=== PATIENT | male | born 1960 | race African-American/Black ===

== ENCOUNTER 2019-09-25 08:57 | Emergency (ER) | payer BC, OTHER ==
[~2019-09-25] VITALS: Ht 188 cm; Wt 183.7 kg
[2019-09-25 09:03] VITALS: BP 121/79
--- NOTE | 2019-09-25 09:23 | NUR ---
58 YO M presented to ER c/o Chest discomfort, left elbow pain x 1 week and nose bleed this morning. Pt rates chest pain 4/10 and left elbow pain 6/10. Pt denies SOB. Pt denies N/V/D. Pt states chest pain started x1 week and then started radiating down to left arm. Pt denies falling or hitting left arm on anything. Pt states he uses [facility] and woke up this morning with a nose bleed, it took 3 minutes to stop the bleed. Pt states he took aspirin this morning for the chest pain and ibuprofen last night for left elbow pain. Pt resting in bed at lowest position, HOB elevated, side rails X1. HX: Diabetes, HTN, Kidney Stones RX: see med rec
[2019-09-25 10:01] LABS: BASOPHILS # (AUTO) 0.1 K/uL (0.00-0.22); BASOPHILS % (AUTO) 0.8 % (0.0-2.0); EOSINOPHILS # (AUTO) 0.2 K/uL (0-0.4); EOSINOPHILS % (AUTO) 3.3 % (0.0-4.0); HEMATOCRIT 40.4 % (36-52); LYMPHOCYTES # (AUTO) 1.8 K/uL (2.0-11.5); LYMPHOCYTES % (AUTO) 26.7 % (20.5-51.1); MEAN CORPUSCULAR HEMOGLOBIN 31 pg (27-31); MEAN CORPUSCULAR HGB CONC 32 g/dL (33-37); MEAN CORPUSCULAR VOLUME 94.4 fL (80-94); MONOCYTES # (AUTO) 0.7 K/uL (0.8-1.0); MONOCYTES % (AUTO) 9.5 % (1.7-9.3); NEUTROPHILS # (AUTO) 4.1 K/uL (1.8-7.7); NEUTROPHILS % (AUTO) 59.7 % (42.2-75.2); PLATELET COUNT (AUTO) 285 K/uL (140-450); RED BLOOD CELL COUNT(AUTO) 4.28 MIL/uL (4.20-6.10); RED CELL DISTRIBUTION WIDTH 15.7 % (11.6-13.7); WHITE BLOOD COUNT (AUTO) 6.9 K/uL (4.8-10.8)
[2019-09-25] MEDS ORDERED: METF1000 PO (10:03)
[2019-09-25] MEDS ORDERED: LANS15EC28 PO (10:03)
[2019-09-25] MEDS ORDERED: CANA300T PO (10:03)
[2019-09-25] MEDS ORDERED: MIC5 PO (10:03)
[2019-09-25] MEDS ORDERED: SIMV20TA1 PO (10:03)
[2019-09-25] MEDS ORDERED: [UNRECOGNIZED DRUG - OTHER] INJ (10:03)
[2019-09-25] MEDS ORDERED: ORE25 PO (10:03)
[2019-09-25] MEDS ORDERED: ALLO100T21 PO (10:03)
[2019-09-25] MEDS ORDERED: BENA20TA PO (10:03)
[2019-09-25] MEDS ORDERED: METF1TAB34 PO (10:03)
[2019-09-25] MEDS ORDERED: VITD400 PO (10:03)
--- NOTE | 2019-09-25 10:04 | NUR ---
Xray at bedside.
[2019-09-25 10:14] LABS: ALBUMIN 3.4 g/dL (3.4-5.0); ANION GAP 12.6 (8-16); CARBON DIOXIDE 28.7 mmol/L (21-32); CREATININE 1.4 mg/dL (0.6-1.3); POTASSIUM 4.3 mmol/L (3.5-5.1); TOTAL BILIRUBIN 0.5 mg/dL (0.0-1.0)
--- NOTE | 2019-09-25 10:22 | NUR ---
pt resting comfortably in bed at lowest position, HOB elevated , side rails X1.
[2019-09-25 10:51] VITALS: BP 114/64
== END 2019-09-25 10:51 | disposition home or self-care (01) ==
LOC: MED 08:57
DX: R07.89 Other chest pain (principal); R04.0 Epistaxis; E11.9 Type 2 diabetes mellitus without complications; I10 Essential (primary) hypertension; Z79.84 Long term (current) use of oral hypoglycemic drugs; Z79.899 Other long term (current) drug therapy
CPT/HCPCS: 36415; 71045; 80053; 84484; 85025; 93005; 99285; Q0092